=== PATIENT | female | born 1945 | race Caucasian/White ===

== ENCOUNTER 2018-11-12 18:57 | Emergency (ER) | payer MEDICARE, OTHER ==
[~2018-11-12] VITALS: Ht 162.6 cm; Wt 108.0 kg
[2018-11-12] MEDS ORDERED: LISINOPRIL10 MG PO (19:09)
[2018-11-12] MEDS ORDERED: METFORMIN HCL500 MG PO (19:10)
[2018-11-12] MEDS ORDERED: MOBIC7.5 MG PO (19:10)
[2018-11-12] MEDS ORDERED: AMITRIPTYLINE H25 M4 PO (19:11)
[2018-11-12] MEDS ORDERED: GABAPENTIN (19:12)
[2018-11-12] MEDS ORDERED: PROTONIX 20 MG20 M1 PO (19:12)
[2018-11-12] MEDS ORDERED: FLONASE 0.05%50 MCG NASAL (19:36)
[2018-11-12] MEDS ORDERED: NORCO 5-325 TA1 EAC1 PO (20:36)
[2018-11-12 20:47] VITALS: BP 165/84
== END 2018-11-12 20:47 | disposition home or self-care (01) ==
LOC: M.ERS 18:57
DX: M25.561 Pain in right knee (principal); I10 Essential (primary) hypertension

== ENCOUNTER → 2018-11-24 | Outpatient (CLI) | payer MEDICARE, OTHER ==
[~2018-11-24] MED LIST: AMITRIPTYLINE H25 M4 PO; FLONASE 0.05%50 MCG NASAL; GABAPENTIN; LISINOPRIL10 MG PO; METFORMIN HCL500 MG PO; MOBIC7.5 MG PO; NORCO 5-325 TA1 EAC1 PO; PROTONIX 20 MG20 M1 PO
== END ==
LOC: M.MRI 08:02
DX: M75.102 Unspecified rotator cuff tear or rupture of left shoulder, not specified as traumatic (principal); M19.012 Primary osteoarthritis, left shoulder; X58.XXXA Exposure to other specified factors, initial encounter; Y93.89 Activity, other specified; Y92.89 Other specified places as the place of occurrence of the external cause; Y99.8 Other external cause status

== ENCOUNTER → 2021-01-17 | Outpatient (CLI) | payer OTHER | LOC: M.RAD 01-15 16:30 | PROVIDERS: ATTEND Family Medicine | DX: Z12.31 Encounter for screening mammogram for malignant neoplasm of breast (principal); M85.88 Other specified disorders of bone density and structure, other site; M81.0 Age-related osteoporosis without current pathological fracture; N95.8 Other specified menopausal and perimenopausal disorders ==